=== PATIENT | male | born 1995 | race Two or more races ===

== ENCOUNTER 2021-12-29 02:14 | Emergency (ER) | payer OTHER ==
[~2021-12-29] VITALS: Ht 190.5 cm; Wt 99.8 kg
[2021-12-29] MEDS ORDERED: KETO10TA2 PO (04:46)
== END 2021-12-29 04:53 ==
LOC: ER 02:14
DX: S40.012A Contusion of left shoulder, initial encounter (principal); V49.88XA Car occupant (driver) (passenger) injured in other specified transport accidents, initial encounter; Y93.89 Activity, other specified; Y92.480 Sidewalk as the place of occurrence of the external cause; Y99.9 Unspecified external cause status; M25.512 Pain in left shoulder